=== PATIENT | male | born 1955 | race Caucasian/White ===

== ENCOUNTER 2017-02-15 17:43 | Emergency (ER) | payer OTHER ==
[~2017-02-15] VITALS: Ht 177.8 cm; Wt 134.5 kg
[2017-02-15 17:46] VITALS: BP 139/85; PULSE 84; RESP 16; TEMP 98.4; O2SAT 98
[2017-02-15] MEDS ORDERED: SIMV10TA PO (18:07)
[2017-02-15] MEDS ORDERED: MECL-62 PO (18:07)
[2017-02-15] MEDS ORDERED: LISI-519 PO (18:07)
[2017-02-15] MEDS ORDERED: AMLO10TA2 PO (18:07)
[2017-02-15] MEDS ORDERED: PLAV75TA29 PO (18:07)
[2017-02-15] MEDS ORDERED: METF1000 PO (18:07)
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
[2017-02-15] MEDS ORDERED: SODIUM CHLORIDE 0.9% FLUSH 10 ML FLUSH IVF PRN (18:30)
--- NOTE | 2017-02-15 18:45 | RADRPT ---
EXAM DATE/TIME: 02/15/2017 18:34 [facility] COMPARISON: No previous studies available for comparison. INDICATIONS : Dizziness and slurring of speech. MEDICAL HISTORY : None. SURGICAL HISTORY : None. ENCOUNTER: Initial ACUITY: 2 weeks PAIN SCORE: 0/10 LOCATION: Bilateral chest FINDINGS: A single view of the chest demonstrates the lungs to be symmetrically aerated without evidence of mas s, infiltrate or effusion. The cardiomediastinal contours are unremarkable. Osseous structures are intact. CONCLUSION: No evidence of acute cardiopulmonary disease. Bharathi Rodgers MD on February 15, 2017 at 18:43 Board Certified Radiologist. This report was verified electronically.
[2017-02-15 19:01] LABS: BACTERIA, URINE RARE /hpf; BLOOD, URINE NEG (NEG); COMMENT (UR) CATH-CULTURE IND; CULTURE IF INDICATED CATH CULTURE IND; GLUCOSE,URINE NEG (NEG); KETONE, URINE 10 mg/dL (NEG); MUCUS URINE MOD /lpf (OCC); NITRITE,URINE NEG (NEG); SQUAMOUS EPITHELIAL CELL URINE <1 /hpf (0-5); URINE COLOR YELLOW (YELLW/STRAW)
[2017-02-15 19:11] LABS: AUTOMATED NEUTROPHIL # 8.3 TH/MM3 (1.8-7.7); BASOPHIL % 0.4 % (0.0-2.0); EOSINOPHIL # 0.1 TH/MM3 (0-0.4); EOSINOPHIL % 1.1 % (0.0-4.0); HEMATOCRIT 48.7 % (39.0-51.0); HEMO FLAGS DIFF FINAL; LYMPH % 10.2 % (9.0-44.0); LYMPHOCYTE # 1.1 TH/MM3 (1.0-4.8); MEAN CELL VOLUME 90.6 FL (80.0-100.0); MEAN CORPUSCULAR HEMOGLOBIN 30.6 PG (27.0-34.0); MEAN CORPUSCULAR HGB CONC 33.8 % (32.0-36.0); MONO % 10.9 % (0.0-8.0); NEUT % 77.4 % (16.0-70.0); PLATELET COUNT 213 TH/MM3 (150-450); RED BLOOD COUNT 5.38 MIL/MM3 (4.50-5.90); RED CELL DISTRIBUTION WIDTH 13.9 % (11.6-17.2); WHITE BLOOD COUNT 10.7 TH/MM3 (4.0-11.0)
[2017-02-15 19:16] LABS: ANION GAP 11 MEQ/L (5-15); BICARBONATE 26.3 MEQ/L (21.0-32.0); BLOOD UREA NITROGEN 19 MG/DL (7-18); CHLORIDE 99 MEQ/L (98-107); GLOMERULAR FILTRATION RATE 59 ML/MIN (>89); SODIUM (NA) 136 MEQ/L (136-145)
[2017-02-15 19:18] LABS: APTT (PATIENT) 29.4 SEC (24.3-30.1); PROTHROMBIN TIME - PATIENT 10.5 SEC (9.8-11.6)
[2017-02-15 19:23] LABS: CREATINE KINASE 35 U/L (39-308)
[2017-02-15 19:37] VITALS: BP 145/84
--- NOTE | 2017-02-16 21:37 | EKG ---
Date Performed: 02/15/2017 Time Performed: 18:46:41 PTAGE: 61 years EKG: Sinus rhythm BORDERLINE LEFT AXIS DEVIATION BORDERLINE ECG NO PREVIOUS TRACING DOCTOR: Alyssa Beaulieu Interpretating Date/Time 02/16/2017 21:36:31
== END 2017-02-15 19:38 | disposition home or self-care (01) ==
LOC: NEPC 17:43
DX: R42 Dizziness and giddiness (principal); I10 Essential (primary) hypertension; E11.9 Type 2 diabetes mellitus without complications; E78.00 Pure hypercholesterolemia, unspecified; Z79.84 Long term (current) use of oral hypoglycemic drugs; Z79.02 Long term (current) use of antithrombotics/antiplatelets; R07.9 Chest pain, unspecified
CPT/HCPCS: 71010; 80048; 81001; 82550; 84484; 85025; 85610; 85730; 87086; 93005; 99285